=== PATIENT | female | born 1970 | race Caucasian/White ===

== ENCOUNTER 2017-10-20 10:51 | Emergency (ER) | payer MEDICARE, MEDICAID ==
[~2017-10-20] VITALS: Ht 167.6 cm; Wt 63.6 kg
[2017-10-20] MEDS ORDERED: ondansetron 4mg rapidly disintigrating tab PO ONE (11:35)
[2017-10-20] MEDS ORDERED: diazepam 5mg tablet PO ONE (11:35)
[2017-10-20] MEDS ORDERED: HYDROcodone/acetaminophen 5mg/325mg tablet PO ONE (11:35)
[2017-10-20] MEDS ORDERED: HYDR-3965 PO (11:36)
[2017-10-20] MEDS ORDERED: METH500T PO (11:36)
[2017-10-20] MEDS ORDERED: VAL5T PO (11:36)
[2017-10-20] MEDS ORDERED: ONDA4TAB9 SL (11:36)
[2017-10-20 11:55] VITALS: BP 113/74
== END 2017-10-20 11:57 | disposition home or self-care (01) ==
LOC: ER 10:52
DX: S39.012A Strain of muscle, fascia and tendon of lower back, initial encounter (principal); G62.9 Polyneuropathy, unspecified; X50.0XXA Overexertion from strenuous movement or load, initial encounter; Y93.89 Activity, other specified; Y92.89 Other specified places as the place of occurrence of the external cause; Y99.8 Other external cause status
CPT/HCPCS: 99284

== ENCOUNTER 2025-07-04 13:34 | Inpatient (IN) | payer BC, MEDICAID ==
[2025-07-04] VITALS (9 sets, daily range): BP systolic 125–154; BP diastolic 46–78; PULSE 57–68; RESP 10–20; TEMP 97.1–98.5; O2SAT 94–98
[~2025-07-04] VITALS: Ht 167.6 cm; Wt 72.9 kg
[~2025-07-04 13:34] MED LIST: METH500T PO
--- NOTE | 2025-07-04 13:50 | Physician Documentation ---
History of Present Illness ~ Stated Complaint: CP Time Seen by MD: 14:54 Primary Medical Doctor: NONE HPI 55-year-old female with a history of heart failure presents to the ED with a complaint of left sternal chest pain nonradiating she does not have increased shortness of breath but does complain of nausea. 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 Unfortunately this patient is not from this area in does not have any local records to access Day of Onset: Jul 04, 2025 Medication Reconciliation Allergies: Coded Allergies: No Known Allergies (Unverified , 02/04/14) Scheduled Methocarbamol (Robaxin), 1 TAB PO Q8H Quetiapine Fumarate (Seroquel), 1 TAB PO HS, (Reported) Past Medical History Past Medical History: Peripheral Neuropathy Past Surgical History: no surgical history Drug Use: none Lives with: Family Lives In: Home Review of Systems All Other Systems at this time: Reviewed and Negative Progress Results/Orders Results/Orders Vital Signs 07/04/25 07/04/25 07/04/25 07/04/25 13:43 15:20 16:17 16:20 Temp 97.7 Pulse 68 63 62 Resp 18 15 15 15 B/P (MAP) 152/88 158/96 (116) 165/88 (113) Pulse Ox 98 97 97 O2 Flow Rate 0 Laboratory Tests Test 07/04/25 14:07 07/04/25 15:45 White Blood Count 5.4 Red Blood Count 5.18 Hemoglobin 15.6 Hematocrit 45.8 H Mean Corpuscular Volume 88.4 Mean Corpuscular Hemoglobin 30.1 Mean Corpuscular Hemoglobin Concent 34.1 Red Cell Distribution Width 14.6 H Platelet Count 310 Mean Platelet Volume 7.3 L Neutrophils (%) (Auto) 64.6 Lymphocytes (%) (Auto) 29.1 Monocytes (%) (Auto) 4.7 Eosinophils (%) (Auto) 0.9 Basophils (%) (Auto) 0.7 Neutrophils # (Auto) 3.5 Lymphocytes # (Auto) 1.6 Monocytes # (Auto) 0.3 Eosinophils # (Auto) 0.0 Basophils # (Auto) 0.0 CBC Comment Prothrombin Time 10.2 INR International Normalized Ratio 1.0 Activated Partial Thromboplast Time 26 Coagulation Comments Sodium Level 137 Potassium Level 4.0 Chloride Level 103 Carbon Dioxide Level 25.6 Anion Gap 8 Blood Urea Nitrogen 18 Creatinine 0.77 Estimated GFR/1.73 m2 78 BUN/Creatinine Ratio 23.4 H Glucose Level 128 H Calcium Level 9.1 Troponin I High Sensitivity 295 *H 253 *H Pro-B-Type Natriuretic Peptide 792 H Albumin 4.2 Chemistry Comments Troponin I High Sens Percent Delta 14 Troponin I Hi Sens Absolute Change -42 Medical Decision Making Findings 55-year-old female presents with a inverted T-waves and suspected ischemia. She has not elevated troponin over 290. He is mildly symptomatic with chest pain she remains hemodynamically stable. I advised Dr. Johnson of the patient and he will follow up once he finishes in the lab intern. In the meantime started her on heparin and will await hospital admission Differential Dx:Considerations: Include: angina, aortic dissection, chest wall pain, cholelithiasis, CHF, costochondritis, esophageal reflux/spasm, gastritis, herpes zoster, myocardial infarction, pericarditis, pleuritis, pancreatitis, pneumonia, pneumothorax, pulmonary embolus, other Departure Referrals: NO PRIMARY CARE PROVIDER (PCP) Signature Scribe Signature: g Attestation: Scribed for Martin Frey Talent Analyst by Martin Mccallum NP . 07/04/25 15:11 MARTIN FREY NP Jul 04, 2025 13:50 RAEGAN ANTHONY MD Jul 05, 2025 06:20
--- NOTE | 2025-07-04 13:53 | ELECTROCARDIOGRAPH REPORT ---
[facility] Test Date: 2025-07-04 Test Time: 13:39:59 Pat Name: KATHI ODONNELL Department: EMERGENCY ROOM Room: [place] [address] Gender: F Deli/Bakery Associate: WILMER : 1970 Requested By: KENNY VILLANUEVA Order Number: [id number] Reading MD: Dr. Lázaro Koroma Measurements Intervals [place] Rate: 62 P: 39 OK: 220 QRS: 86 QRSD: 105 T: 27 QT: 428 QTc: 435 Interpretive Statements Sinus rhythm Prolonged OK interval Consider left atrial enlargement Abnormal T, consider ischemia, anterior leads Baseline wander in lead(s) V2,V3 Electronically Signed On 07-12-2025 8:17:[address] Lázaro Koroma Please click the below link to view image of tracing.
--- NOTE | 2025-07-04 14:12 | RADIOLOGY REPORT ---
DI CHEST,SINGLE VIEW, HISTORY: CP COMPARISON: None None TECHNICAL DATA: 1 view of the chest was obtained. FINDINGS: Lines and tubes: None Cardiomediastinal silhouette: normal Pulmonary vasculature: normal Lung expansion: normal Lung airspace: normal Lung interstitium: normal Pleura: normal Pneumothorax: no Bones: Unremarkable Other: no IMPRESSION: No acute intrathoracic abnormality.
[2025-07-04 14:29] LABS: MEAN PLATELET VOLUME 7.3 FL (7.4-10.4); RED CELL DISTRIBUTION WIDTH 14.6 % (11.5-14.5)
[2025-07-04 14:53] LABS: CREATININE 0.77 MG/DL (0.40-0.90); PRO BRAIN NATRIURETIC PEPTIDE 792 PG/ML (0-125); TOTAL CARBON DIOXIDE 25.6 MMOL/L (24-32); eCRCL 76 ML/MIN; eGFR 78 ML/MIN
[2025-07-04] MEDS ORDERED: heparin 10,000 units/1 ML INJ IV ONE (14:55)
[2025-07-04] MEDS ORDERED: heparin 10,000 units/1 ML INJ IV PRN (14:55)
[2025-07-04] MEDS: heparin 10,000 units/1 ML INJ IV ONE (15:27)
[2025-07-04] MEDS: ondansetron/PF 4mg/2ml inj IV ONE (15:27)
[2025-07-04] MEDS: heparin 25,000 UNIT/250ml bag 250 ML IV ONE (15:29)
[2025-07-04] MEDS: MESSAGE TO NURSING IV ONE (15:30)
[2025-07-04] MEDS: heparin 25,000 UNIT/250ml bag 250 ML IV PRN (15:31)
[2025-07-04 15:39] LABS: APTT 26 SECONDS (22-32); INR 1.0 INR
[2025-07-04] MEDS ORDERED: nitroGLYCERIN 500mcg/5mL D5W 5 ML IV ONE (16:36)
[2025-07-04] MEDS ORDERED: fentaNYL/PF 50MCG/1 ML 2ML syringe ONE (16:36)
[2025-07-04] MEDS ORDERED: verapamil 2.5 mg/ml inj IV ONE (16:36)
[2025-07-04] MEDS ORDERED: midazolam 1 mg/ML 2ml injection ONE (16:36)
[2025-07-04] MEDS ORDERED: heparin 1,000unit/ml 10ml vial 10 ML ONE (16:36)
[2025-07-04] MEDS ORDERED: LIDOcaine 1% (10mg/ml) 2ml vial ONE (16:51)
--- NOTE | 2025-07-04 17:18 | CARDIAC CATH REPORT ---
Cardiac Cath Report Providers to CC CC: DENISSE DUNNE MD Procedure Comments: 1. Left Heart Catheterization 2. Selective Coronary Angiography 3. Right Radial Artery Access Brief History/Indications: 55yo woman with HTN, HLD, ?CHF, Breast CA(s/p XRT ~ 20 years ago), h/o Meth use admitted with CP x 1 day, found to have anterior TWI and elevated trop. Techniques: After informed consent was obtained, the patient was brought to the cardiac catheterization laboratory and prepped and draped in usual sterile fashion for left heart catheterization and other procedures mentioned above. The right wrist was anesthetized with 1% Lidocaine and the right radial artery accessed via the Seldinger technique after which a 6Fr sheath was placed. Through this a TIG was used to engage the left ventricle, the left coronary artery, and the right coronary artery. At the conclusion of the case the sheath was removed and hemostasis obtained with a VascBand. Findings Findings: HEMODYNAMICS: LV: 140/13 mmHg LVEDP: 17 mmHg Ao: 140/100, MAP 119 mmHg CORONARY ARTERIES: Rt Dominant LMCA: Luminal Irregularities. Trifurcates into LAD, RI, and LCx LAD: Luminal Irregularities D1: Luminal Irregularities D2: Small, Luminal Irregularities RI: Luminal Irregularities LCx: Luminal Irregularities OM1: Luminal Irregularities OM2: Luminal Irregularities RCA: Luminal Irregularities PDA: Luminal Irregularities PL: Luminal Irregularities Results Results: 1. No significant obstructive CAD 2. RRA Access, closed with VascBand RECOMMENDATIONS: 1. Recommend uptitration of max-tolerated GDMT 2. f/u Utox RICH DUNNE MD Jul 04, 2025 17:18
[2025-07-04] MEDS ORDERED: potassium Cl 40MEQ/1/2NS 520ml 520 ML IV PRN (17:35)
[2025-07-04] MEDS ORDERED: potassium Cl 20 mEq SR tablet PO PRN ×2 (17:35)
[2025-07-04] MEDS ORDERED: magnesium Cl slow-release 64mg tablet PO PRN (17:35)
[2025-07-04] MEDS ORDERED: ondansetron/PF 4mg/2ml inj IV PRN (17:35)
[2025-07-04] MEDS ORDERED: magnesium sulf-water 4G/100mL 100 ML IV PRN (17:35)
[2025-07-04] MEDS ORDERED: magnesium hydroxide 30ml (MOM) UD suspension PO PRN (17:35)
[2025-07-04] MEDS ORDERED: magnesium sulf-water 2g/50mL 50 ML IV PRN (17:35)
[2025-07-04] MEDS ORDERED: EMPAGLIFLOZIN 10 MG TABLET PO SCH (18:00)
[2025-07-04] MEDS ORDERED: morphine 4 MG/ML inj SYRINge IV PRN ×2 (18:06→18:09)
[2025-07-04] MEDS ORDERED: sacubitril/valsartan 24mg-26mg tablet PO SCH (18:10)
--- NOTE | 2025-07-04 18:21 | HISTORY AND PHYSICAL-Residence ---
History & Physical Providers to Resident Creating Document: ADAMARIS LOZADA RES ~ History of Present Illness Primary Medical Doctor: NONE Reason for Admit\Complaint: NSTEMI,Congestive heart failure History of Present Illness 55 years old female with past medical history of hyperlipidemia, prediabetes, hypertension, congestive heart failure presented to ED with severe chest pain which is on left side at rest, sharp in nature with 8/10 intensity radiating to shoulder and associated with chills, diaphoresis, nausea, shortness of breath, orthopnea, PND Patient has a history of congestive heart failure which was diagnosed 6 months ago for which she uses medication but she did not know the name of the medication, patient endorses recent weight gain, increased shortness of breath at rest, orthopnea, PND. She denies any fever, palpitation, vomiting, diarrhea, pedal edema and abdominal pain Allergies: Coded Allergies: No Known Allergies (Unverified , 02/04/14) Home Medications Home Medications Active Robaxin (Methocarbamol) 500 Mg Tablet 1 Tab PO Q8H Past Medical History Past Medical History Hypertension Congestive heart failure Prediabetic Hypertension Hyperlipidemia Breast cancer Past Surgical History Surgical History Comment Total hysterectomy Breast reconstruction surgery Past Social History Social History Comment [facility] Few drinks alcohol occasionally, smokes marijuana regularly, she is a nonsmoker She has a history of methamphetamine use Patient lives in her home alone, she able to ambulate without any assistance Drug Use: None Lives with: Family Lives In: Home ROS Constitutional: Reports: weakness Eyes: Reports: no symptoms reported Respiratory: Reports: orthopnea, SOB at rest Cardiovascular: Reports: chest pain, diaphoresis Gastrointestinal: Reports: nausea, vomiting Genitourinary: Reports: no symptoms reported Female Genitalia: Reports: no reported symptoms Neurological: Reports: no symptoms reported Musculoskeletal: Reports: no symptoms reported Integumentary: Reports: no symptoms reported Allergic/Immunologic: Reports: no symptoms reported Endocrine: Reports: no symptoms reported Psychiatric: Reports: no symptoms reported Exam Vitals: Vital Signs Date Time Temp Pulse Resp B/P (MAP) Pulse Ox O2 Delivery O2 Flow Rate FiO2 07/04/25 17:50 58 07/04/25 16:45 16 162/104 (123) 97 07/04/25 13:43 97.7 0 General: GENERAL: Awake, alert, oriented x4 HEENT : Facial puffiness is noted, periorbital swelling noted, Normocephalic, atraumatic, pupils equal and reactive to light, extraocular movements intact, no scleral icterus or conjunctival pallor, nasal mucosa is moist, oral mucosa moist, NECK: neck is supple, trachea midline, no lymphadenopathy, no thyromegaly, no JV distention RESPIRATORY: Chest expansion equal bilaterally, breath sounds vesicular, no wheezes, or rhonchi. No use of accessory muscles, no tenderness on palpation. CARDIOVASCULAR: S1 and S2 heard, no murmurs, no rubs, or gallops ABDOMEN: Soft, nontender, nondistended, bowel sounds present and normoactive. No organomegaly, no palpable mass, no rebound or guarding NEUROLOGICAL: Alert, oriented, normal memory, speech is normal Cranial nerves II-XII- intact Motor strength 5/5 Sensation-intact in all extremities Reflexes +2 and symmetrical Coordination is intact EXTREMITIES: No Edema, peripheral pulses felt, no deformities Psychiatric:Appropriate mood and affect,No hallucinations or suicidal ideation Diagnostic Data Last Recorded Lab Results: 07/04/25 1407 07/04/25 1407 Diagnostic Data: Laboratory Tests Test 07/04/25 14:07 Prothrombin Time 10.2 SECONDS (9.0-12.0) INR International Normalized Ratio 1.0 INR Activated Partial Thromboplast Time 26 SECONDS (22-32) Coagulation Comments Advance Care Planning Advanced Care plannin - 30 Minutes Additional Plan 55 years old female with past medical history of Hypertension,Congestive heart failure,Prediabetic,Hypertension,Hyperlipidemia,Breast cancer is currently evaluated for NSTEMI and congestive heart failure NSTEMI ASCVD- 3.8% SHAWANDA score 3 Differential-type 2 TN Patient came to ED with complaints of severe chest pain 8/10 in intensity Troponin-295- 253-258 Patient initially started on heparin drip, we held after nurse first aid recommendation Cardiology Dr. Johnson was consulted, patient was taken to catheterization lab- results shows no significant obstructive coronary artery disease, minor luminal irregularities, but no significant stenosis, cardiology Dr. Johnson recommended to start GDM T drugs Started on aspirin 81 mg p.o. daily, atorvastatin 80 mg p.o. daily, carvedilol 6.25 mg p.o. b.i.d. Continue monitoring the patient in telemetry Acute Congestive heart failure with preserved ejection fraction-LVEF 65% Patient has a history of congestive heart failure for which she takes medications ProBNP-792 Chest x-ray-No acute intrathoracic abnormality. Echocardiogram shows LVEF 65%: Started on carvedilol 6.25 mg p.o. b.i.d., lisinopril 20 mg p.o. daily, spironolactone 20 mg p.o. daily, We will start Jardiance 10 mg p.o. daily from tomorrow Essential hypertension Longstanding, currently suboptimally controlled Patient current blood pressure-165/88 mmHg Started on carvedilol 6.25 mg p.o. daily, lisinopril 20 mg p.o. daily IV hydralazine if systolic blood pressure is more than 160 We will continue to monitor the patient Hyperlipidemia Patient has a history of hyperlipidemia for which she takes medications at home, med rec is pending Started atorvastatin 80 mg p.o. daily Follow up with lipid panel Prediabetic Patient currently use no hypoglycemic agents Blood glucose-128 Follow up with HbA1c History of breast cancer, resolved No evidence of reoccurrence, status post surgery/chemotherapy 20 years ago Code Status: Full DVT prophylaxis: SCDs Analgesia/Sedation: Morphine Line/tube: PICC Nutrition: Heart healthy diet PT: Order Prognosis: Guarded Disposition: Patient will be monitored in PCU with telemetry Adamaris Lozada PGY1-Internal Medicine Resident Date of Service: Jul 04, 2025 Billing Provider: PATI MANZANO MD Common Visit Codes: [id number] INP/OBS CARE (HIGH) Secondary Visit Codes: [id number] CARE PLAN 30 MINUTES ADAMARIS LOZADA, RES Jul 04, 2025 18:21 PATI MANZANO MD Jul 08, 2025 13:09
[2025-07-04] MEDS ORDERED: hydrALAZINE 20mg/ml inj. IV PRN (18:30)
--- NOTE | 2025-07-04 19:01 | CARDIOLOGY REPORT ---
APPROVED REPORT EXAM: Comprehensive 2D, Doppler, and color-flow Echocardiogram. Patient Location: 301 Blood Pressure: 162/104 mmHg Heart Rate: 65 bpm Rhythm: NSR Indications Chest Pain CAD Troponin 258 Pro BNP 792 No special technical operations officer No previous echo 2D Dimensions LA Diam 3.7 cm IVSd 1.0 (0.7-1.1cm) LVDd 4.5 cm PWd 1.1 (0.7-1.1cm) IVSs 1.5 (0.8-1.2cm) LVDs 2.9 (2.5-4.0cm) Aortic Root(2D) 2.7 cm PWs 1.3 (0.8-1.2cm) LVOT Diameter 2.01 (1.8-2.4cm) LVEF(%) 67.0 (>50%) Ao Asc Diam. 3.13 cm IVC 13.64 mm FS (%) 37.0 % SV 62.6 ml CO 4.0 L/min M-Mode Dimensions MV EPSS 0.7 (<0.5cm) Aortic Valve AoV Peak Clement. 118.3 cm/s AoV VTI 25.1 cm AO Peak GR. 5.6 mmHg AO Mean GR. 3 mmHg LVOT VTI 18.53 cm LVOT Peak Clement. 79.6 cm/s MIRYAM(VTI)/BSA 2.35 cm2/m2 MIRYAM (VTI) 2.35 cm2 AV DI 0.74 % Mitral Valve MV E Velocity 59.3 cm/s MV Peak Gr. 2 mmHg MV DECEL TIME 296 ms MV A Velocity 83.4 cm/s MV PHT 52 ms E/A Ratio 0.7 MVA (PHT) 4.23 cm2 MV VMax 76.8 cm/s TDI Medial E' P. V 6.11 cm/s E/Medial E' 9.7 Tricuspid Valve RAP ESTIMATE 10 mmHg Pulmonary Vein S1 Velocity 43.1 cm/s D2 Velocity 39.0 cm/s PVa Velocity 24.7 cm/s PVa Duration 80 msec LEFT VENTRICLE Normal LV size and wall thickness. Overall systolic function is normal. LVEF is 65%. RIGHT VENTRICLE RV appears moderately dilated with normal contractility. ATRIA The left atrium size is normal. AORTIC VALVE Trileaflet AV appears sclerotic without stenosis. No insufficiency. MITRAL VALVE MV is thickened with mild annular calcification and no stenosis. Trace mitral regurgitation. TRICUSPID VALVE The tricuspid valve is normal in structure. Trace tricuspid regurgitation. PULMONIC VALVE The pulmonary valve is normal in structure. Trace pulmonic insufficiency. GREAT VESSELS The aortic root is normal in size. The ascending aorta is normal in size. The IVC is normal in size and collapses >50% with inspiration. PERICARDIUM There is no pericardial effusion. Other Information Study Quality: Fair Conclusion Normal LV size and wall thickness. Overall systolic function is normal. LVEF is 65%. RV appears moderately dilated with normal contractility. The left atrium size is normal. Trileaflet AV appears sclerotic without stenosis. No insufficiency. MV is thickened with mild annular calcification and no stenosis. Trace mitral regurgitation. The tricuspid valve is normal in structure. Trace tricuspid regurgitation. The pulmonary valve is normal in structure. Trace pulmonic insufficiency. There is no pericardial effusion.
[2025-07-04 19:16] LABS: CHOL/HDL RATIO 3.5 (0.00-4.99); LDL CHOLESTEROL 130 MG/DL (50-100)
[2025-07-04] MEDS: K and/or MAG REPLACEMENT MC SCH (20:00)
[2025-07-04] MEDS ORDERED: QUET50TA PO (20:58)
[2025-07-04] MEDS: docusate sod 100mg capsule PO SCH (21:22)
[2025-07-04] MEDS: carvedilol 6.25mg tablet PO SCH (21:23)
[2025-07-05] VITALS (12 sets, daily range): BP systolic 88–145; BP diastolic 44–73; PULSE 52–78; RESP 12–18; TEMP 97–98; O2SAT 96–100
[2025-07-05] MEDS: normal saline 500ml IV soln 500 ML IV ONE (04:14)
[2025-07-05 07:23] LABS: MEAN PLATELET VOLUME 7.1 FL (7.4-10.4); RED CELL DISTRIBUTION WIDTH 14.0 % (11.5-14.5)
[2025-07-05 07:38] LABS: CREATININE 0.81 MG/DL (0.40-0.90); TOTAL CARBON DIOXIDE 29.4 MMOL/L (24-32); eCRCL 73 ML/MIN; eGFR 73 ML/MIN
[2025-07-05] MEDS ORDERED: ROSU10TA98 PO (11:10)
[2025-07-05] MEDS ORDERED: SACUBITRIL-VALSARTAN PO (11:12)
[2025-07-05] MEDS ORDERED: QUET100T34 PO (11:12)
[2025-07-05] MEDS ORDERED: METO-395 PO (11:12)
[2025-07-05] MEDS ORDERED: SPIR25TA5 PO (11:12)
[2025-07-05] MEDS: EMPAGLIFLOZIN 10 MG TABLET PO SCH (13:23)
[2025-07-05] MEDS: mag hydrox/Alum hydrox/simeth 30ml oral suspension PO PRN (15:08)
--- NOTE | 2025-07-05 20:24 | PROGRESS NOTE- Residence ---
Progress Note - Resident Providers to CC Resident Creating Document: ADAMARIS HOWARD RES ~ Antibiotic Timeout Antibiotic Ordered?: No Subjective Patient was examined at the bedside, patient has a mildly chest pain overnight which was subsided with oral nitroglycerin, during examination she mentioned no acute symptoms other than tiredness Objective Vital Signs Date Time Temp Pulse Resp B/P (MAP) Pulse Ox O2 Delivery O2 Flow Rate FiO2 07/05/25 15:00 97.2 65 14 112/49 (70) 100 Room Air 07/05/25 08:55 0.0 Result Diagram: 07/05/25 0708 07/05/25 0708 GENERAL: Awake, alert, oriented x4 HEENT : Facial puffiness is noted, periorbital swelling noted, Normocephalic, atraumatic, pupils equal and reactive to light, extraocular movements intact, no scleral icterus or conjunctival pallor, nasal mucosa is moist, oral mucosa moist, NECK: neck is supple, trachea midline, no lymphadenopathy, no thyromegaly, no JV distention RESPIRATORY: Chest expansion equal bilaterally, breath sounds vesicular, no wheezes, or rhonchi. No use of accessory muscles, no tenderness on palpation. CARDIOVASCULAR: S1 and S2 heard, no murmurs, no rubs, or gallops ABDOMEN: Soft, nontender, nondistended, bowel sounds present and normoactive. No organomegaly, no palpable mass, no rebound or guarding NEUROLOGICAL: Alert, oriented, normal memory, speech is normal Cranial nerves II-XII- intact Motor strength 5/5 Sensation-intact in all extremities Reflexes +2 and symmetrical Coordination is intact EXTREMITIES: No Edema, peripheral pulses felt, no deformities Psychiatric:Appropriate mood and affect,No hallucinations or suicidal ideation Coagulation Studies Laboratory Tests Test 07/04/25 14:07 07/04/25 21:23 Prothrombin Time 10.2 SECONDS (9.0-12.0) INR International Normalized Ratio 1.0 INR Activated Partial Thromboplast Time 26 SECONDS (22-32) APTT (Heparin Protocol) 27 SECONDS (45-60) L Coagulation Comments Advance Care Planning Advanced Care plannin - 30 Minutes Plan Plan Lisinopril 5 mg p.o. daily NSTEMI ASCVD- 3.8% SHAWANDA score 3 Differential-type 2 UT Patient came to ED with complaints of severe chest pain 10 in intensity Troponin-295- 253-258 Patient initially started on heparin drip, we held after transmission operator recommendation Cardiology Dr. Johnson was consulted, patient was taken to catheterization lab- results shows no significant obstructive coronary artery disease, minor luminal irregularities, but no significant stenosis, cardiology Dr. Johnson recommended to start GDM T drugs In view of low blood pressure and bradycardia we held GDMT drugs Started on carvedilol 3.25 mg p.o. b.i.d., lisinopril 5 mg p.o. daily-continue jardiance Continue monitoring patient in telemetry Acute Congestive heart failure with preserved ejection fraction-LVEF 65% NYHA class iii Patient has a history of congestive heart failure for which she takes medications ProBNP-792 Chest x-ray-No acute intrathoracic abnormality. Echocardiogram shows LVEF 65%: Started on carvedilol 6.25 mg p.o. b.i.d., lisinopril 20 mg p.o. daily, spironolactone 20 mg p.o. daily, We will start Jardiance 10 mg p.o. daily from tomorrow Essential hypertension Longstanding, currently suboptimally controlled Today patient is currently maintaining low blood pressure Held blood pressure medication in view soft blood pressure reading Hyperlipidemia Patient has a history of hyperlipidemia, [id number] controlled Continue atorvastatin 80 mg p.o. daily Prediabetic Patient currently use no hypoglycemic agents Blood glucose-128 [id number]-6.7 History of anxiety Started home med quetiapine 50mg po daily History of breast cancer, resolved No evidence of reoccurrence, status post surgery/chemotherapy 20 years ago Code Status: Full DVT prophylaxis: SCDs Analgesia/Sedation: Morphine Line/tube: PICC Nutrition: Heart healthy diet PT: Order Prognosis: Guarded Disposition: Patient will be monitored in PCU with telemetry Date of Service: Jul 05, 2025 Billing Provider: PATI MANZANO MD Common Visit Codes: [id number] INP/OBS CARE(HIGH) ADAMARIS HOWARD, RES Jul 05, 2025 20:24 PATI MANZANO MD Jul 08, 2025 13:09
[2025-07-05] MEDS ORDERED: non-formulary drug (Quetiapine Fumarate (Seroquel) 1 TAB) PO SCH (21:00)
[2025-07-06 02:00] VITALS: BP 98/48; PULSE 49; RESP 15; TEMP 96.7; O2SAT 95
[2025-07-06 06:00] VITALS: BP 104/44; PULSE 59; RESP 17; TEMP 96.9; O2SAT 95
[2025-07-06 06:51] LABS: MEAN PLATELET VOLUME 7.3 FL (7.4-10.4); RED CELL DISTRIBUTION WIDTH 14.1 % (11.5-14.5)
[2025-07-06 08:04] LABS: CREATININE 0.80 MG/DL (0.40-0.90); TOTAL CARBON DIOXIDE 28.5 MMOL/L (24-32); eCRCL 74 ML/MIN; eGFR 74 ML/MIN
[2025-07-06 08:15] VITALS: RESP 17; O2SAT 95
[2025-07-06 11:10] VITALS: BP 107/62; PULSE 60; RESP 15; TEMP 97.2; O2SAT 95
--- NOTE | 2025-07-06 16:18 | RADIOLOGY REPORT ---
NUCLEAR MEDICINE VENTILATION/PERFUSION LUNG SCAN. INDICATION: Suspecting Pulmonary embolism TECHNIQUE: Following intravenous demonstration of 4.3 millicuries of technetium 99m MAA, and inhalation of 38.4 mCi of Tc 99m DTPA scintigrams were obtained in multiple projections of the lungs. FINDINGS: There is normal uptake of radionuclide on both the ventilation and perfusion portions of the examination. There is no large mismatched defect. IMPRESSION: Low probability for PE.
[2025-07-06] MEDS ORDERED: NITR0.4T51 SL (18:10)
[2025-07-06] MEDS ORDERED: EZET10TA80 PO (18:10)
[2025-07-06] MEDS ORDERED: COR3.125T PO (18:10)
[2025-07-06] MEDS ORDERED: ATOR-2 PO (18:10)
[2025-07-06] MEDS ORDERED: ASPI81TA52 PO (18:10)
[2025-07-06] MEDS ORDERED: EMPA10TA PO (18:10)
--- NOTE | 2025-07-06 19:34 | DISCHARGE SUMMARY-Residence ---
Discharge Summary Providers to CC Resident Creating Document: ADAMARIS HOWARD, RES ~ Discharge Summary Admission Diagnosis: CP Hospital Course DATE OF ADMISSION: 07/04/2025 DATE OF DISCHARGE: 07/06/2025 Discharge Diagnosis\Comment: NSTEMI Acute Congestive heart failure with preserved ejection fraction-LVEF 65% Essential hypertension Hyperlipidemia Prediabetic History of breast cancer, resolved Operations\Procedures: Cardiac Cath Consultants: Complications: None Condition on DC: Stable New Medications: Aspirin (Aspirin EC) 81 Mg Tablet.dr 1 TAB PO DAILY for 30 Days, #30 TAB Nitroglycerin SL* (Nitrostat SL*) 0.4 Mg Tablet 1 TAB SL Q5MIN PRN for FOR CHEST PAIN, #25 TAB Atorvastatin Calcium (Atorvastatin Calcium) 80 Mg Tablet 1 TAB PO DAILY for 30 Days, #30 TAB 0 Refills Carvedilol (Carvedilol) 3.125 Mg Tablet 3.125 MG PO BID for 30 Days, #60 TAB Empagliflozin (Jardiance) 10 Mg Tablet 10 MG PO DAILY for 30 Days, #30 TAB Ezetimibe (Ezetimibe) 10 Mg Tablet 10 MG PO DAILY for 30 Days, #30 TAB Continued Medications: Methocarbamol (Robaxin) 500 Mg Tablet 1 TAB PO Q8H, #30 TAB Quetiapine Fumarate (Seroquel) 50 Mg Tablet 1 TAB PO HS for 30 Days, #30 TAB 0 Refills Quetiapine Fumarate (Quetiapine Fumarate) 100 Mg Tablet 1 TAB PO BID [Sacubitril-Valsartan] () 1 TAB PO BID Spironolactone (Spironolactone) 25 Mg Tablet 0.5 TAB PO DAILY Discontinued Medications: Metoprolol Succinate (Metoprolol Succinate) 25 Mg Tab.sr.24h 0.5 TAB PO DAILY Rosuvastatin Calcium (Rosuvastatin Calcium) 10 Mg Tablet 1 TAB PO DAILY Discharge Summary: History of Present Illness 55 years old female with past medical history of hyperlipidemia, prediabetes, hypertension, congestive heart failure presented to ED with severe chest pain which is on left side at rest, sharp in nature with 8/10 intensity radiating to shoulder and associated with chills, diaphoresis, nausea, shortness of breath, orthopnea, PND Patient has a history of congestive heart failure which was diagnosed 6 months ago for which she uses medication but she did not know the name of the medication, patient endorses recent weight gain, increased shortness of breath at rest, orthopnea, PND. She denies any fever, palpitation, vomiting, diarrhea, pedal edema and abdominal pain Hospital course 55 years old female with past medical history of hyperlipidemia, prediabetes, hypertension, congestive heart failure presented to ED with severe chest pain wh ich is on left side at rest, sharp in nature with 8/10 intensity radiating to shoulder and associated with chills, diaphoresis, nausea, shortness of breath, orthopnea, PND, patient underwent cardiac catheterization results shows no significant obstructive coronary artery disease, minor luminal irregularities, but no significant stenosis, cardiology Dr. Johnson recommended to start GDM T drugs . So Started on Asprine, Atorvastatin,Nitroglycen,Carvedilol,Empagliflozin,Ezetimibe. On the day of discharge patient reports no symptoms and her V/Q scan ruled out PE and patient recovered sooner than expected and fit for Discharge Vital Signs Date Time Temp Pulse Resp B/P (MAP) Pulse Ox O2 Delivery O2 Flow Rate FiO2 07/06/25 11:10 97.2 60 15 107/62 (77) 95 Room Air 07/06/25 08:15 0.0 Laboratory Tests Test 07/04/25 21:23 07/05/25 07:08 07/06/25 06:33 07/06/25 13:28 APTT (Heparin Protocol) 27 SECONDS Coagulation Comments White Blood Count 5.3 X10'3 5.3 X10'3 Red Blood Count 4.44 X10'6 4.73 X10'6 Hemoglobin 13.3 g/dl 14.4 g/dl Hematocrit 39.4 % 42.3 % Mean Corpuscular Volume 88.6 FL 89.4 FL Mean Corpuscular Hemoglobin 29.8 PG 30.4 PG Mean Corpuscular Hemoglobin Concent 33.7 g/dL 34.0 g/dL Red Cell Distribution Width 14.0 % 14.1 % Platelet Count 235 X10'3 246 X10'3 Mean Platelet Volume 7.1 FL 7.3 FL Neutrophils (%) (Auto) 41.3 % 42.4 % Lymphocytes (%) (Auto) 46.4 % 44.7 % Monocytes (%) (Auto) 9.0 % 10.0 % Eosinophils (%) (Auto) 2.3 % 1.9 % Basophils (%) (Auto) 1.0 % 1.0 % Neutrophils # (Auto) 2.2 X10'3 2.3 X10'3 Lymphocytes # (Auto) 2.4 X10'3 2.4 X10'3 Monocytes # (Auto) 0.5 X10'3 0.5 X10'3 Eosinophils # (Auto) 0.1 X10'3 0.1 X10'3 Basophils # (Auto) 0.1 X10'3 0.1 X10'3 CBC Comment Sodium Level 142 MMOL/L 142 MMOL/L Potassium Level 5.0 MMOL/L 4.8 MMOL/L Chloride Level 107 MMOL/L 105 MMOL/L Carbon Dioxide Level 29.4 MMOL/L 28.5 MMOL/L Anion Gap 6 9 Blood Urea Nitrogen 22 MG/DL 22 MG/DL Creatinine 0.81 MG/DL 0.80 MG/DL Estimated GFR/1.73 m2 73 ML/MIN 74 ML/MIN BUN/Creatinine Ratio 27.2 27.5 Glucose Level 97 MG/DL 99 MG/DL Calcium Level 8.2 MG/DL 8.8 MG/DL Magnesium Level 1.9 MG/DL 2.1 MG/DL Total Bilirubin 1.4 MG/DL 1.3 MG/DL Aspartate Amino Transf (AST/SGOT) 24 U/L 23 U/L Alanine Aminotransferase (ALT/SGPT) 27 U/L 27 U/L Alkaline Phosphatase 83 IU/L 92 IU/L Total Protein 6.6 G/DL 7.4 G/DL Albumin 3.3 G/DL 3.7 G/DL Globulin 3.3 G/DL 3.7 G/DL Albumin/Globulin Ratio 1.0 1.0 Chemistry Comments D-Dimer 1.89 MG/L FEU D-Dimer Comment Physical examination GENERAL: Awake, alert, oriented x4 HEENT : Facial puffiness is noted, periorbital swelling noted, Normocephalic, atraumatic, pupils equal and reactive to light, extraocular movements intact, no scleral icterus or conjunctival pallor, nasal mucosa is moist, oral mucosa moist, NECK: neck is supple, trachea midline, no lymphadenopathy, no thyromegaly, no JV distention RESPIRATORY: Chest expansion equal bilaterally, breath sounds vesicular, no wheezes, or rhonchi. No use of accessory muscles, no tenderness on palpation. CARDIOVASCULAR: S1 and S2 heard, no murmurs, no rubs, or gallops ABDOMEN: Soft, nontender, nondistended, bowel sounds present and normoactive. No organomegaly, no palpable mass, no rebound or guarding NEUROLOGICAL: Alert, oriented, normal memory, speech is normal Cranial nerves II-XII- intact Motor strength 5/5 Sensation-intact in all extremities Reflexes +2 and symmetrical Coordination is intact EXTREMITIES: No Edema, peripheral pulses felt, no deformities Psychiatric:Appropriate mood and affect,No hallucinations or suicidal ideation Imaging in hospital chest X ray- No acute intrathoracic abnormality. Echo-Normal LV size and wall thickness. Overall systolic function is normal. LVEF is 65%. RV appears moderately dilated with normal contractility. The left atrium size is normal. Trileaflet AV appears sclerotic without stenosis. No insufficiency. MV is thickened with mild annular calcification and no stenosis. Trace mitral regurgitation. The tricuspid valve is normal in structure. Trace tricuspid regurgitation. The pulmonary valve is normal in structure. Trace pulmonic insufficiency. There is no pericardial effusion. V/Q Scan-Low probability for PE. Discharge instructions: Follow up with PCP and Cardiology in a week New Medications: Aspirin (Aspirin EC) 81 Mg Tablet. Nitroglycerin SL* (Nitrostat SL*) 0.4 Mg Tablet Atorvastatin Calcium 80 Mg Tablet Carvedilol 3.125 Mg Tablet Empagliflozin (Jardiance) 10 Mg Tablet Ezetimibe 10 Mg Tablet Call 911 or come to ED incase of emergency *Problems/Diagnosis: (1) NSTEMI (non-ST elevated myocardial infarction) (2) Hyperlipidemia Total Time Spent on D/C: Up to 30 Minutes Date of Service: Jul 06, 2025 Billing Provider: PATI MANZANO MD Common Visit Codes: 10266-LGT/OBS DISCH DAY >30min ADAMARIS HOWARD, RES Jul 06, 2025 19:33 PATI MANZANO MD Jul 08, 2025 13:09
== END 2025-07-06 18:46 | disposition home or self-care (01) | DRG 280 ==
LOC: ER 13:35 → ED HOLD 16:29 → PCU 3S 17:32
PROVIDERS: ADMIT Family Medicine; ATTEND Family Medicine
PROC: 4A023N7 Measurement of Cardiac Sampling and Pressure, Left Heart, Percutaneous Approach (ICD-10-PCS; principal; 2025-07-04)
PROC: B2111ZZ Fluoroscopy of Multiple Coronary Arteries using Low Osmolar Contrast (ICD-10-PCS; 2025-07-04)
PROC: CB121ZZ Planar Nuclear Medicine Imaging of Lungs and Bronchi using Technetium 99m (Tc-99m) (ICD-10-PCS; 2025-07-06)
DX: I21.4 Non-ST elevation (NSTEMI) myocardial infarction (principal); I50.31 Acute diastolic (congestive) heart failure; I11.0 Hypertensive heart disease with heart failure; E78.5 Hyperlipidemia, unspecified; G62.9 Polyneuropathy, unspecified; I25.10 Atherosclerotic heart disease of native coronary artery without angina pectoris; R73.03 Prediabetes; Z85.3 Personal history of malignant neoplasm of breast
CPT/HCPCS: 36415; 71045; 78582; 80048; 80053; 80061; 83036; 83735; 83880; 84132; 84443; 84484; 85025; 85379; 85610; 85730; 87081; 93005; 93306; 93458; 96365; 96375; 99152; 99285; A6258; A9539; A9540; C1894; G0378; J1644; J2003; J2250; J2405; J2470; J3010; J3490; J7040; Q9967